=== PATIENT | male | born 2000 | race Hispanic/Latino ===

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

== ENCOUNTER 2022-04-20 12:22 | Emergency (ER) | payer BC ==
[2022-04-20] MEDS ORDERED: Lidocaine 1% (PF) 30 ML VIAL ONE (14:38)
[2022-04-20] MEDS ORDERED: Boostrix 0.5 ML (Tdap) VIAL ONE (15:17)
== END 2022-04-20 15:23 | disposition home or self-care (01) ==
LOC: ERS 12:22
DX: S51.011A Laceration without foreign body of right elbow, initial encounter (principal); W22.8XXA Striking against or struck by other objects, initial encounter
CPT/HCPCS: 12001; 90471; 90715; J2001

== ENCOUNTER 2022-04-25 20:24 | Emergency (ER) | payer BC ==
[2022-04-25 21:10] LABS: #Basophils 0.1 thou/uL (0.0-0.2); #Lymphocytes 1.6 thou/uL (1.20-3.40); #Monocytes 0.8 thou/uL (0.11-0.59); #Neutrophils 8.7 thou/uL (1.40-6.50); %Basophils 0.8 % (0.0-1.0); %Eosinophils 0.3 % (0.0-10.0); %Lymphocytes 14.3 % (28.0-48.0); %Neutrophils 77.7 % (31.0-61.0); Hemoglobin 15.9 g/dL (14.0-18.0); Mean Corpuscular HGB CONC 33.1 g/dL (32.0-36.0); Mean Corpuscular Hemoglobin 29.9 pg (25.0-35.0); Mean Corpuscular Volume 90.5 fL (78.0-98.0); Mean Platelet Volume 9.3 fL (7.4-10.4); Platelet Count 231 thou/uL (130-400); RBC Distribution Width 12.8 % (11.5-14.5); Red Blood Cell (RBC) Count 5.33 mill/uL (4.00-5.20); White Blood Cell (WBC) Count 11.3 thou/uL (4.8-10.8)
[2022-04-25 21:32] LABS: ALT (SGPT) 17 U/L (8-55); AST (SGOT) 23 U/L (10-45); Albumin 5.1 g/dL (3.5-5.0); Alkaline Phosphatase 127 U/L (50-130); Anion Gap 18 mmol/L (10-20); BUN (Urea Nitrogen) 18 mg/dL (8.4-21.0); Bilirubin, Total 0.8 mg/dL (0.2-1.2); Calc. Creatinine Clearance 0 mL/min (70-130); Calcium 10.6 mg/dL (7.8-10.44); Carbon Dioxide 28 mmol/L (22-29); Chloride 96 mmol/L (98-107); Estimated GFR 92; Glucose 98 mg/dL (70-105); Potassium 4.5 mmol/L (3.5-5.1); Protein, Total 8.1 g/dL (6.0-8.3); Sodium 137 mmol/L (136-145)
== END 2022-04-26 00:06 | disposition home or self-care (01) ==
LOC: ERS 20:24
DX: T67.2XXA Heat cramp, initial encounter (principal)
CPT/HCPCS: 36415; 80053; 85025; 93005